=== PATIENT | female | born 1990 | race Caucasian/White ===

== ENCOUNTER 2022-02-09 17:15 | Day surgery (SDC) | payer OTHER, SELFPAY ==
[2022-02-09] VITALS (13 sets, daily range): BP systolic 111–133; BP diastolic 65–96; PULSE 68–103; RESP 14–103; TEMP 36.3–37; O2SAT 99–100
--- NOTE | ~2022-02-09 | US_ITS ---
US OB <=14 wk fetus w TV DATE: 02/09/2022 18:35 INDICATION: Abdominal pain TECHNIQUE: Real-time imaging via transabdominal and transvaginal approaches COMPARISON: None FINDINGS: The uterus measures 8 cm height approximately. There is prominent fluid and soft tissue col lection within the endometrial cavity which measures up to 2.6 cm AP dimension. There is a complex mass in the right adnexal area measuring up to 6.9 x 4.5 x 3.0 cm consider rupture d ectopic . There is some free fluid in the right adnexa. Differential diagnosis includes less likely possibilities such as ruptured ovarian cyst, pelvic infla mmatory disease, abscess, bowel rupture. The left ovary measures 1.8 x 1.6 x 2.3 cm, with an approximately 1.2 x 1.5 cm cyst. IMPRESSION: Complex large right adnexal mass and right adnexal free fluid; first consideration would be ruptured ectopic . Prominent fluid and soft tissue within the endometrial cavity which measures up to 2.6 cm AP dimensio n. Right ovarian and right endometrial malignancies are not excluded. Differential diagnosis includes pe lvic infection, bowel rupture Reviewed, dictated and finalized at [facility] Reviewed, dictated and finalized at [facility]. IMPRESSION: Complex large right adnexal mass and right adnexal free fluid; firs t consideration would be ruptured ectopic . Prominent fluid and soft tissue within the endometrial cavity which measures up to 2.6 cm AP dimension. Right ovarian and right endometrial malignancies are not excluded. Differential diagnosis includes pelvic infection, bowel rupture
--- NOTE | 2022-02-09 17:38 | ED.FEMALEGU ---
HPI - Female Genitourinary General Chief complaint: Vaginal Bleeding Stated complaint: Ectopic Miscarriage Time Seen by Provider: 02/09/22 17:32 History of Present Illness HPI Narrative: 31-year-old female 4 para 3 presents emergency room secondary to severe right suprapubic abdominal pain. Last menstrual period was noted to be December 26. She is seen by Dr. Mario Verma in [place]. She developed sudden onset of severe pain yesterday and was was seen at [facility] emergency department at that time. Ultrasound at that time showed findings consistent with probable threatened miscarriage. Quantitative beta-hCG was 2200 at that time. She already had a ultrasound scheduled at her doctor's office today and she followed up there. At this time he states that there are ultrasound which does not have a radiology interpretation at this point but shows a 3 cm mass around the right ovary. Quantitative hCG at this time is down to 1500. He was concerned subsequently called me and transferred the patient over to our emergency department. Related Data Allergies Allergy/AdvReac Type Severity Reaction Status Date / Time erythromycin base Allergy Rash Verified 02/09/22 17:26 Review of Systems Review of Systems: CONSTITUTIONAL: Denies fever, chills, or sweats. EYES: Denies visual changes, redness, or discharge. ENT: Denies rhinorrhea, congestion, sore throat, or otalgia. CARDIOVASCULAR: Denies chest pain, palpitations, or edema. RESPIRATORY: Denies cough or dyspnea. GASTROINTESTINAL: Denies abdominal pain, nausea, vomiting, or diarrhea. GENITOURINARY: Denies dysuria or hematuria. SKIN: Denies rash or itching. MUSCULOSKELETAL: Denies back pain, joint pain, or myalgia. NEUROLOGIC: Denies headache, numbness, or weakness. PSYCHIATRIC: Denies anxiety or depression. [facility] Past Medical History Medical History (Updated 02/09/22 @ 19:47 by Yang Perez DO) No pertinent past medical history Surgical History Surgical History (Updated 02/09/22 @ 17:42 by Yang Perez DO) No pertinent past surgical history Social History Social History (Updated 02/09/22 @ 17:42 by Yang Perez DO) Smoking status: Never smoker Alcohol intake: current Alcohol use details: Very occasional Exam Narrative: APPEARANCE: Patient appears to be in mild to moderate distress secondary to pain. Head normocephalic and atraumatic. EYES: PERRLA/EOMI, conjunctivae very clear. NOSE: Normal with no drainage EARS:TMS clear Emmanuel Steel, with good light reflex. THROAT: Pharynx clear, no exudate. NECK: Supple. No adenopathy, no masses. RESPIRATORY: Airway patent, respirations nonlabored. Clear to auscultation bilaterally, no rales, rhonchi, wheezing. CARDIOVASCULAR: Regular rate and rhythm without murmurs, rubs, or gallops. ABDOMINAL: Significant tenderness to palpation in the right suprapubic region. Musculoskeletal: Moves all extremities. Strength/ROM intact, No edema, No calf tenderness. NEURO: Alert. Cranial nerves II through XII intact. Normal gait. Good coordination. Nonfocal examination. SKIN:: Warm, dry. Normal Color PSYCHIATRIC: Normal affect/mood, normal interaction Course Vital Signs Vital signs: Vital Signs Temperature 98.6 F 02/09/22 17:22 Pulse Rate 103 H 02/09/22 17:22 Respiratory Rate 103 H 02/09/22 17:22 Blood Pressure 114/72 02/09/22 17:22 Pulse Oximetry 100 02/09/22 17:22 Oxygen Delivery Room Air 02/09/22 17:22 Temperature 98.6 F 02/09/22 17:22 Pulse Rate 74 02/09/22 19:16 Respiratory Rate 18 02/09/22 19:16 Blood Pressure 119/96 H 02/09/22 19:16 Pulse Oximetry 100 02/09/22 19:16 Oxygen Delivery Room Air 02/09/22 17:22 MDM - Female Genitourinary MDM Narrative Medical decision making narrative: Ultrasound confirms the patient has a right ruptured ectopic . Discussed with Dr. Orosco [employer] who discussed with his partner Nathanael Garcia. He is in route to the hos
[2022-02-09 17:56] LABS: Basophils Percent Auto 0.3 % (0.2-1.2); Eosinophils Absolute Auto 0.1 K/mm3 (0-0.3); Eosinophils Percent Auto 0.5 % (0-4.4); Hematocrit 37.7 % (37.0-47.0); Hemoglobin 12.3 g/dL (12.0-15.0); Immature Granulocyte Absolute 0.03 K/mm3 (0.00-0.031); Immature Granulocyte Percent A 0.3 % (0-0.5); Lymphocytes Absolute Auto 3.21 K/mm3 (0.9-3.2); Lymphocytes Percent Auto 29.2 % (18.3-44.2); Mean Corpuscular HGB Conc 32.6 g/dl (32-36); Mean Corpuscular Hemoglobin 29.1 pg (26-34); Mean Corpuscular Volume 89.3 fl (80-100); Mean Platelet Volume 10.2 fl (7.4-10.4); Monocytes Absolute Auto 0.8 K/mm3 (0.1-0.6); Monocytes Percent Auto 7.6 % (2.6-8.5); Neutrophils Absolute Auto 6.8 K/mm3 (1.3-6.7); Neutrophils Percent Auto 62.1 % (45.5-73.1); Platelet Count Result 286 k/mm3 (150-375); Red Blood Count 4.22 M/mm3 (4.2-5.4); Red Cell Distribution Width 12.6 % (11.5-14.5)
[2022-02-09] MEDS: MORPHINE SULFATE (*CRX) 2 MG/ML INJ IV PUSH ×2 (17:59→19:36)
[2022-02-09 18:07] LABS: Alanine Aminotransferase 14 U/L (6-35); Albumin Level 4.7 g/dL (3.5-5.1); Alkaline Phosphatase 40 U/L (38-126); Anion Gap 9 mmol/L (8-16); Aspartate Amino Transferase 22 U/L (14-36); Bilirubin,Total 0.4 mg/dL (0.2-1.3); Blood Urea Nitrogen 10 mg/dL (7-17); Calcium 8.8 mg/dL (8.4-10.2); Carbon Dioxide 23 mmol/L (22-30); Chloride 104 mmol/L (98-107); Estimated CRCL calculation 94 ml/min; Estimated Glomerular Filt Rate > 60; Glucose 93 mg/dL (65-110); Potassium 3.3 mmol/L (3.4-5.0); Sodium 136 mmol/L (137-145)
[2022-02-09 18:09] LABS: INR 1.1; Prothrombin Time 13.9 Seconds (11.1-14.7)
[2022-02-09 18:10] LABS: Partial Thromboplastin Time 30.3 SECONDS (22.3-36.8)
[2022-02-09] MEDS: MORPHINE SULFATE (*CRX) 4 MG/ML INJ IV PUSH (18:47)
[2022-02-09] MEDS: SODIUM CHLORIDE 0.9% IV 1,000 ML 500 ML IV CONT (18:48)
--- NOTE | 2022-02-09 20:01 | PM.IMHP ---
H&P: HPI History of Present Illness Date/Time: 02/09/22 20:01 Chief Complaint: Lower abdominal pain with findings consistent with ruptured ectopic Narrative: 31-year-old 4 para 3 with what appears to be an ectopic with the free fluid in the abdomen. She was seen in [place]. She was watched with this mass in her HCG has dropped. Her belly now has fluid present which appears to be the ruptured ectopic. She will undergo laparoscopic right salpingectomy possible right salpingo-oophorectomy PMFSH Past Medical History Medical History No pertinent past medical history Surgical History Surgical History No pertinent past surgical history Social History Social History Smoking status: Never smoker Alcohol intake: current Alcohol use details: Very occasional Meds Home Medications and Allergies Allergies Allergy/AdvReac Type Severity Reaction Status Date / Time erythromycin base Allergy Rash Verified 02/09/22 17:26 Vital Signs Vital Signs - 24 hr 02/09/22 17:22 02/09/22 18:03 02/09/22 18:31 Temperature 98.6 F Pulse Rate 103 H 75 71 Respiratory Rate 103 H 18 18 Blood Pressure 114/72 114/79 120/90 Pulse Oximetry 100 100 99 Oxygen Delivery Room Air 02/09/22 19:01 02/09/22 19:16 Temperature Pulse Rate 71 74 Respiratory Rate 18 18 Blood Pressure 133/84 119/96 H Pulse Oximetry 100 100 Oxygen Delivery Exam Const: General: cooperative and healthy appearing HENMT: Head: normal to inspection : Speculum Exam - Cervix: normal appearance of the cervix Bimanual Exam- Adnexa, other: tender OB/external & speculum: Active bleeding present H&P: Results Labs Labs: Short CBC 02/09/22 Range/Units 17:51 WBC 11.0 H (4.5-10.0) K/mm3 Hgb 12.3 (12.0-15.0) g/dL Hct 37.7 (37.0-47.0) % Plt Count 286 (150-375) k/mm3 [facility] 02/09/22 17:51 Sodium 136 L Potassium 3.3 L Chloride 104 Carbon Dioxide 23 BUN 10 Creatinine 0.60 L Glucose 93 Calcium 8.8 Liver Function 02/09/22 Range/Units 17:51 Total Bilirubin 0.4 (0.2-1.3) mg/dL AST 22 (14-36) U/L ALT 14 (6-35) U/L Alkaline Phosphatase 40 (38-126) U/L Albumin 4.7 (3.5-5.1) g/dL Assessment and Plan Assessment and plan (1) Hemoperitoneum due to rupture of right tubal ectopic : Code(s): O00.101 - Right tubal without intrauterine ; K66.1 - Hemoperitoneum Status: Acute Plan Laparoscopic right salpingectomy/possible right salpingo-oophorectomy
--- NOTE | 2022-02-09 20:06 | WPDANESEPPF ---
Anes - Initial Pre Proc Eval Procedure: Operation Date: 02/09/22 20:30 Proposed Procedures p Diagnostic Laparoscopy Pos Lap - Narinder Juares MD Date/Time: 02/09/22 20:06 Pre Op Diagnosis: Ectopic Miscarriage Patient Data Age: 31 Gender: F Height: 1.63 m Weight: 51.8 kg Last Vital Signs Temp 37.0 C 02/09/22 17:22 Pulse 74 02/09/22 19:16 Resp 18 02/09/22 19:16 BP 119/96 H 02/09/22 19:16 Pulse Ox 100 02/09/22 19:16 O2 Del Method Room Air 02/09/22 17:22 Allergies Allergy/AdvReac Type Severity Reaction Status Date / Time erythromycin base Allergy Rash Verified 02/09/22 17:26 Home Medications Medication Instructions Recorded Confirmed Type hydrocodone 5 mg-acetaminophen 325 1 tablet PO Q4H PRN pain #30 tabs 02/09/22 Rx mg tablet Laboratory Tests 02/09/22 02/09/22 02/09/22 17:51 17:51 17:51 WBC 11.0 K/mm3 H K/mm3 (4.5-10.0) RBC 4.22 M/mm3 M/mm3 (4.2-5.4) Hgb 12.3 g/dL g/dL (12.0-15.0) Hct 37.7 % % (37.0-47.0) MCV 89.3 fl fl (80-100) MCH 29.1 pg pg (26-34) MCHC 32.6 g/dl g/dl (32-36) RDW 12.6 % % (11.5-14.5) Plt Count 286 k/mm3 k/mm3 (150-375) MPV 10.2 fl fl (7.4-10.4) Immature Gran % (Auto) 0.3 % % (0-0.5) Neut % (Auto) 62.1 % % (45.5-73.1) Lymph % (Auto) 29.2 % % (18.3-44.2) Dawson % (Auto) 7.6 % % (2.6-8.5) Eos % (Auto) 0.5 % % (0-4.4) Baso % (Auto) 0.3 % % (0.2-1.2) Lymph # (Auto) 3.21 K/mm3 H K/mm3 (0.9-3.2) Dawson # (Auto) 0.8 K/mm3 H K/mm3 (0.1-0.6) Eos # (Auto) 0.1 K/mm3 K/mm3 (0-0.3) Baso # (Auto) 0.0 K/mm3 K/mm3 (0.0-0.1) Abs Immat Gran (auto) 0.03 K/mm3 K/mm3 (0.00-0.031) Absolute Neuts (auto) 6.8 K/mm3 H K/mm3 (1.3-6.7) Absolute Nucleated RBC 0.0 K/mm3 K/mm3 (0.0-0.012) Nucleated RBC % 0.0 % % (0.0-0.2) PT 13.9 Seconds Seconds (11.1-14.7) INR 1.1 APTT 30.3 SECONDS SECONDS (22.3-36.8) Sodium 136 mmol/L L mmol/L (137-145) Potassium 3.3 mmol/L L mmol/L (3.4-5.0) Chloride 104 mmol/L mmol/L (98-107) Carbon Dioxide 23 mmol/L mmol/L (22-30) Anion Gap 9 mmol/L mmol/L (8-16) BUN 10 mg/dL mg/dL (7-17) Creatinine 0.60 mg/dL L mg/dL (0.7-1.0) Estim Creat Clear Calc 94 ml/min ml/min Estimated GFR > 60 (59 - ) Glucose 93 mg/dL mg/dL (65-110) Calcium 8.8 mg/dL mg/dL (8.4-10.2) Total Bilirubin 0.4 mg/dL mg/dL (0.2-1.3) AST 22 U/L U/L (14-36) ALT 14 U/L U/L (6-35) Alkaline Phosphatase 40 U/L U/L (38-126) Total Protein 8.0 g/dL g/dL (6.3-8.2) Albumin 4.7 g/dL g/dL (3.5-5.1) Patient hx anesthesia problems: none Family hx anesthesia problems: none Results Review: All pre-operative results and documents have been reviewed as part of the pre-operative evaluation. [facility] Past Medical History Medical History No pertinent past medical history Surgical History Surgical History No pertinent past surgical history Social History Social History Smoking status: Never smoker Alcohol intake: current Alcohol use details: Very occasional Anes - Eval Final PreProcedure Day of Procedure 02/09/22 20:06 Patient weight: normal Heart: regular rate and rhythm Lungs: clear to auscultation Airway: Mallampati scale class II Neurological: alert and oriented Last oral intake: >/= 8 hours ASA classification: II Emergent: yes Anesthetic plan: proceed Anesthesia type and monitoring: general
--- NOTE | 2022-02-09 20:10 | WPDHPUPDATE1 ---
History and Physical Update Update Date/Time: 02/09/22 20:10 History and Physical has been reviewed, including an updated exam of the patient. There are NO changes in the patient's condition. Risks, benefits, and alternatives have been discussed and questions answered. Patient agrees to proceed with procedure.
[2022-02-09] MEDS: ceFAZolin SODIUM 1 GM VIAL 2 GM IV PUSH (20:11)
[2022-02-09] MEDS: LACTATED RINGERS 1,000 ML 30 ML IV CONT ×2 (20:30→21:20)
--- NOTE | 2022-02-09 20:52 | P.OP_ITS ---
Procedure Note - Detailed Date of Procedure 02/09/22 Pre-op Diagnosis r Ectopic Miscarriage Post-op Diagnosis Same Procedure Performed Laparoscopic right salpingectomy/evacuation of hematoma peritoneum Surgeon Narinder Juares MD Anesthesia General Indications This 31-year-old 4 para 3 with an ectopic on the right with hemato peritoneum Findings Mildly enlarged uterus. Normal-appearing left ovary and tube. Normal-appearing right ovary. Ruptured right fallopian tube. Part 100-150 cc of blood in the cul-de-sac Description of Procedure The patient was prepped draped in normal sterile fashion placed in dorsal lithotomy position. Under excellent general trach anesthesia weighted speculum placed in posterior fornix vagina. Anterior lip of cervix grasped with single- tooth tenaculum and the Gardnre's cannula inserted to be attached later for uterine manipulation. Bladder was emptied of clear urine. The weighted speculum was removed and gloves were changed. A supraumbilical incision made the Veress needle passed in the abdomen. Abdomen filled with CO2 gas 15mmmmmercury. 5mm trocar advanced under direct visualization assuring no injury. Patient placed in Trendelenburg and a suprapubic incision made the 5mm trocar was advanced under direct visualization assuring no injury. Other a marked amount of adhesions however about 100-150 cc of blood was seen in the cul-de-sac. This was suction and removed. The left ovary and tube appeared within normal limits the right ovary was within normal limits and bleeding ectopic was seen on the right. A right lower quadrant incision made the 11mm trocar advanced under direct visualization assuring injury. Using the LigaSure the tubal complex was serially clamped burned until its origin of the uterus and then clamped across and removed through the right lower quadrant. Irrigation undertaken to clear and hemostasis was assured. Gas removed from the abdomen the trocars removed from the abdomen. The incisions closed with 4-0 Monocryl and glue. Instruments removed from the vagina and the patient went to recovery in satisfactory condition. All sponge, needle, instrument counts were correct. There were no immediate complications Estimated Blood Loss 25 Drains No Packing No Pathology Yes Complications No immediate complications Condition Stable Disposition PACU
[2022-02-09] MEDS: HYDROmorphone HCL INJ (*CRX) 1 MG/ML SYR 0.5 MG IV PUSH ×4 (21:15→21:38)
[2022-02-09] MEDS: ONDANSETRON INJ 4 MG/2 ML VIAL IV PUSH (22:13)
[2022-02-09] MEDS: oxyCODONE HCL (*CRX) 5 MG TAB IR PO (22:21)
[2022-02-09] MEDS: diphenhydrAMINE HCl INJ 50 MG/ML VIAL 25 MG IV PUSH (22:32)
== END 2022-02-09 23:13 | disposition home or self-care (01) ==
LOC: ANHED 21:04 → ANHSURGERY 21:05
PROVIDERS: Emergency Provider Emergency Medicine; Visit Provider Obstetrics & Gynecology
PROC: (CPT 49320; principal; 2022-02-09 20:30)
DX: O00.101 Right tubal pregnancy without intrauterine pregnancy (principal); K66.1 Hemoperitoneum; Z3A.00 Weeks of gestation of pregnancy not specified
CPT/HCPCS: 59151; 36415; 76801; 76817; 80053; 85025; 85610; 85730; 88302; 96374; 96375; 96376; 99285; A9270; J0330; J0690; J1100; J1170; J1200; J2270; J2405; J2704; J3010; J7030; J7120